=== PATIENT | female | born 1985 | race Caucasian/White ===

== ENCOUNTER 2016-07-03 06:08 | Inpatient (IN) | payer BC ==
[~2016-07-03] VITALS: Ht 170.2 cm; Wt 90.5 kg
[2016-07-03] VITALS (28 sets, daily range): BP systolic 97–138; BP diastolic 42–97; PULSE 66–113; TEMP 97.7–98.2
[~2016-07-03 06:08] MED LIST: MOTRIN 800800 MG/TAB PO
[2016-07-03] MEDS ORDERED: PRENATAL1 TA7 PO (06:43)
[2016-07-03 07:25] LABS: BASO % 0.2 % (0.0-2.0); EOS # 0.2 (0.0-0.7); EOS % 1.8 % (0-4.0); GRAN # 8.8 (1.4-6.5); GRAN % 67.5 % (42.2-75.2); LYMPH # 2.7 (1.2-3.4); LYMPH % 20.9 % (20.0-51.0); MEAN CELL VOLUME 84 fl (80.0-100.0); MEAN CORPUSCULAR HGB CONC 32 g/dl (33.0-37.0); MEAN PLATELET VOLUME 10.8 fl (7.4-10.4); MONO # 1.2 (0.1-0.6); MONO % 8.9 % (1.7-9.3); PLATELET COUNT 248 K/mm3 (130-400); RED BLOOD COUNT 4.39 M/mm3 (4.10-5.30); REDCELL DISTRIBUTION WIDTH-CV 14.1 % (11.5-14.5)
[2016-07-03 07:32] LABS: HEMATOCRIT 36.8 % (37.0-47.0); HEMOGLOBIN 11.9 g/dl (12.5-16.0); MEAN CORPUSCULAR HEMOGLOBIN 27 pg (27.0-31.0)
[2016-07-04 05:00] VITALS: BP 118/66; PULSE 101; TEMP 97.4
[2016-07-04 08:09] LABS: HEMATOCRIT 32.2 % (37.0-47.0); HEMOGLOBIN 10.1 g/dl (12.5-16.0)
[2016-07-04 10:00] VITALS: BP 112/72; PULSE 82; TEMP 97.5
[2016-07-04 18:50] VITALS: BP 116/83; PULSE 112; TEMP 97.8
[2016-07-05 10:10] VITALS: BP 133/78; PULSE 86; TEMP 97.7
[2016-07-05] MEDS ORDERED: MOTRIN 800800 MG/TAB PO (10:28)
[2016-07-05] MEDS ORDERED: PERCOCET 325 MG1 TA2 PO (10:28)
== END 2016-07-05 17:10 | disposition home or self-care (01) | DRG 766 ==
LOC: LDRO 06:08 → LDR 06:27 → OB 11:00 → LDRO 07-07 15:28
PROVIDERS: Obstetrics & Gynecology
PROC: 10D00Z1 Extraction of Products of Conception, Low, Open Approach (ICD-10-PCS; principal; 2016-07-03)
DX: O34.211 Maternal care for low transverse scar from previous cesarean delivery (principal); N85.8 Other specified noninflammatory disorders of uterus; O32.1XX0 Maternal care for breech presentation, not applicable or unspecified; Z3A.39 39 weeks gestation of pregnancy; Z37.0 Single live birth
CPT/HCPCS: J0690; J1885; J2270; J2370; J2405; J2590; J2704; J7120